=== PATIENT | male | born 1945 | race Caucasian/White ===

== ENCOUNTER 2017-08-24 18:27 | Inpatient (IN) ==
[2017-08-24] MEDS ORDERED: BISACODYL 10 MG SUPPOSITORY RECTALLY PRN (19:39)
[2017-08-24] MEDS ORDERED: ONDANSETRON 4 MG/2 ML INJECTION IVP PRN (19:39)
[2017-08-24 19:51] VITALS: BMI 28.8
[2017-08-24] MEDS: SALINE FLUSH 10ml SYRINGE IV PRN (20:05)
[2017-08-24] MEDS ORDERED: DEXTROSE 50% SYRINGE 50ml (1 AMP) IVP PRN (20:07)
[2017-08-24] MEDS ORDERED: ACETAMINOPHEN 500 MG TABLET PO PRN (20:23)
[2017-08-24] MEDS ORDERED: ALBUTEROL/IPRATROPIUM 2.5mg-0.5mg/3ml NEB IPPB PRN (20:25)
[2017-08-24] MEDS: MEROPENEM 1 GM in NS 100 ML IV SCH (20:28)
[2017-08-24] MEDS: DOCUSATE SODIUM 100 MG CAPSULE PO SCH (20:30)
[2017-08-24] MEDS ORDERED: MORPHINE SULFATE 2 MG/ML AEROSOL PRN (20:32)
--- NOTE | 2017-08-24 20:37 | History & Physical Report ---
History of Present Illness Date: 08/25/17 Chief complaint: SOA, Recurrent PNA HPI: This is a very pleasant 72-year-old male with known small cell lung cancer having undergone his 1st chemotherapy approximately August 08 for 3 days. This was done at [place]. The patient states that his breathing issues all started on the last day of May. 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 He was admitted in [place] for 8 days on antibiotics for pneumonia. 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 He initially felt better. About a month ago he had recurrent shortness of breath and was in [place]. He was sent to [facility] in [place] and was again admitted for pneumonia on antibiotics. He was there for another 8 days. This past Saturday morning he woke up with fevers and chills again. His fever was up to 102. He has been having intermittent yellow thick sputum production ever since May. He has been having chest tightness that 's been ongoing since the [place] admission as well. Of note he does have a history of a stent by Dr. Edwards 6 or 7 years ago. He denies having [place] at that time. He has had intermittent fevers and chills. He denies nausea, vomiting , diarrhea, constipation, hematechezia, melena. He does get lightheaded with position changes like going from sitting to standing. Today he noticed some slight dysuria. Review of Systems All systems PM: 10-point ROS was reviewed, no additional remarkable complaints except Review of systems: Review of systems is as noted in the HPI. All other review of systems is negative. [facility] Patient Stated Medical History Cataracts Yes Congestive Heart Failure Yes Hypertension Yes Chronic Obstructive Pulmonary Yes Disease (COPD) Pneumonia Yes Other Respiratory Yes: stage 4 lung cancer Diabetes Mellitus Type 2 Yes Gastrointestinal Bleeding Yes Ulcer Yes Blood Transfusions Yes Patient denied having COPD/emphysema or asthma to me. He does have a history of small cell lung cancer. He has a history of hypertension, hyperlipidemia, coronary artery disease, carotid artery disease, diabetes, gout, GERD. He denies history thyroid disorder, liver disease or kidney disease. Surgical History: EGD, appendix, colonoscopy, gallbladder, other. Cardiac: cardiac cath, cardiac stent, carotid endarterectomy Family History: Family history is positive for cancer in both mom and dad's side of the family. 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 Medications Home Medications Medication Instructions Recorded Confirmed Type Allopurinol 300 mg PO HS #0 09/21/13 08/24/17 History Enalapril Maleate 10 mg PO DAILY #0 09/21/13 08/24/17 History Furosemide [Lasix] 40 mg PO DAILY #0 09/21/13 08/24/17 History Metformin HCl 500 mg PO BIDWM #0 09/21/13 08/24/17 History Pantoprazole Sodium 40 mg PO DAILY #0 09/21/13 08/24/17 History Potassium Chloride [Klor-Con 10] 10 meq PO DAILY #0 tab 09/21/13 08/24/17 History Saw [place] Xtr/Zinc Picolin [Saw 4 cap PO DAILY #0 09/21/13 08/24/17 History [place] Ext 160 mg Cap] Simvastatin 80 mg PO HS #0 09/21/13 08/24/17 History raNITIdine HCl [Ranitidine HCl] 150 mg PO BID #0 09/21/13 08/24/17 History Clopidogrel Bisulfate [Clopidogrel] 75 mg PO DAILY #0 11/15/14 08/24/17 History Acetaminophen [Acetaminophen Extra 2 tab PO DAILY PRN #0 10/24/16 08/24/17 History Strength] Cyanocobalamin (Vitamin B-12) 1 tab PO DAILY #0 10/24/16 08/24/17 History [Vitamin B-12] Diclofenac 1 applic TOP PRN #0 10/24/16 08/24/17 History Multivitamin [Multi-Day Vitamins] 1 tab PO DAILY #0 10/24/16 08/24/17 History Pyridoxine HCl (Vitamin B-6) 1 tab PO DAILY #0 10/24/16 08/24/17 History Sertraline [Zoloft] 25 mg PO DAILY 10/07/17 10/07/17 History Allergies Allergy/AdvReac Type Severity Reaction Status Date / Time lorazepam Allergy Severe MOOD/HALLUCINATIONS Verified 08/24/17 03:59 AND AGRESSION Exam Vital Signs: Temperature 98.3 F 08/24/17 18:39 Pulse Rate 87 08/24/17 18:39 Respiratory Rate 16 08/24/17 18:39 Blood Pressure 104/63 08/24/17 18:39 Pulse Oximetry 95 08/24/17 18:39 Height/Weight/BMI: Height 1.71 m Weight 84.6 kg Body Mass Index 28.8 Comments: Gen.: alert and oriented, no acute distress, mildly tachypneic skin: warm and dry. Guero cath on anterior chest wall HEENT: NC/AT PERRL, EOMI, Scleral, lids and conjunctiva wnl. MMM. OP clear. Neck: supple, no JVD, carotids 2+ upstroke Lungs: diminished but fairly clear. No rales, rhonchi or wheezes. Heart: regular rate and rhythm. No murmur, rub or gallop abdomen: obese, soft, nontender, nondistended with positive bowel sounds MS: no edema, good distal pulses. Neuro: no focal deficits. Results - Labs CBC & Chem 7: 08/24/17 20:06 08/24/17 20:06 Labs: Pending - ABG Interpretation ABG results: 08/24/17 19:47 ABG pH 7.476 H ABG pCO2 38 ABG pO2 59 L ABG HCO3 28 H ABG Total CO2 29 H ABG O2 Saturation 92.0 L ABG Base Excess 4.0 H Assessment and Plan Assessment and Plan: 08/24/2017 1. Klebsiella bacteremia -Meropenem IV -Likely pulm source -lactic acid and pro-calcitonin pending -white blood count pending 2. Klebsiella pneumonia -Meropenem -resp therapy 3. Diabetes -sliding scale insulin -Accu checks -carb consistent diet -hold metformin 4. Hypertension -currently low normotensive -hold JP inhibitor for the time being -follow closely, volume status 5. Hyperlipidemia -Lipitor 40 mg 6. Coronary artery disease -history of stent 6 or 7 years ago -continue aspirin and Plavix 7. Gout -continue allopurinol 8. Depression -continue Zoloft -Valium PRN 9. Small cell lung cancer -currently undergoing chemotherapy most recently approximately August 08. DVT and G.I. prophylaxis with sub Q heparin and PPI Sepsis Assessment - Evaluation Possible source: pulmonary Confirmed Suspected Infection: Yes Hospital Course Summary Disclaimer: The visit summary below is not to be considered part of the above Progress Note.
[2017-08-24] MEDS ORDERED: ALBUTEROL/IPRATROPIUM 2.5mg-0.5mg/3ml NEB AEROSOL PRN ×2 (20:41→21:09)
[2017-08-24] MEDS ORDERED: BUDESONIDE INH.SOLN 0.5mg/2ml NEB AEROSOL ONE (20:45)
[2017-08-24] MEDS ORDERED: HEPARIN 5,000unit/ml 1ml INJECTION IV SCH (21:00)
[2017-08-24] MEDS ORDERED: ALBUTEROL/IPRATROPIUM 2.5mg-0.5mg/3ml NEB IPPB SCH (21:00)
[2017-08-24] MEDS: ALLOPURINOL 300 MG TABLET PO SCH (22:02)
[2017-08-24] MEDS: ATORVASTATIN 40 MG TABLET PO SCH (22:02)
[2017-08-24] MEDS: GUAIFENESIN LA 600 MG TABLET PO SCH (23:52)
[2017-08-25] MEDS ORDERED: HEPARIN 5,000unit/ml 1ml INJECTION SUB-Q SCH (00:09)
[2017-08-25] MEDS: MEROPENEM 1 GM in NS 100 ML IV SCH ×3 (00:47→16:37)
[2017-08-25] MEDS ORDERED: FALL RISK - PHARMACY CONSULT XX ONE (04:03)
[2017-08-25] MEDS: SALINE FLUSH 10ml SYRINGE IV PRN (04:30)
[2017-08-25] MEDS ORDERED: BUDESONIDE INH.SOLN 0.5mg/2ml NEB AEROSOL SCH (07:00)
[2017-08-25] MEDS: ALBUTEROL/IPRATROPIUM 2.5mg-0.5mg/3ml NEB AEROSOL SCH ×4 (07:23→19:31)
[2017-08-25] MEDS: BUDESONIDE INH.SOLN 0.5mg/2ml NEB AEROSOL SCH ×2 (07:23→19:32)
--- NOTE | 2017-08-25 10:09 | XRay Report ---
INDICATION: hypoxia PROCEDURE: CHEST 2-VIEWS UPRIGHT (PA & LAT) Encounter: Initial COMPARISON: August 24, 2017 at 0003 FINDINGS: Left-sided hydropneumothorax is again seen with decrease in the gas component, now approximately 10%. Continued moderate fluid component with an air-fluid level present. Partial collapse of the left lung versus. Recommend correlation with patient's surgical and procedural history. Right lung remains stable and grossly clear. No midline shift. Mediastinal contours are grossly stable. Impression: Decreasing gas component within the left hydropneumothorax. Results were called to Dr. Coates at 1005 on August 25, 2017. .
--- NOTE | 2017-08-25 10:26 | Progress Note ---
Subjective: This is a very pleasant 72-year-old male with known small cell lung cancer having undergone his 1st chemotherapy approximately August 08 for 3 days. This was done at [place]. The patient states that his breathing issues all started on the last day of May. 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 He was admitted in [place] for 8 days on antibiotics for pneumonia. 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 He initially felt better. About a month ago he had recurrent shortness of breath and was in [place]. He was sent to [facility] in [place] and was again admitted for pneumonia on antibiotics. He was there for another 8 days. This past Saturday morning he woke up with fevers and chills again. His fever was up to 102. He has been having intermittent yellow thick sputum production ever since May. He has been having chest tightness that 's been ongoing since the [place] admission as well. Of note he does have a history of a stent by Dr. Edwards 6 or 7 years ago. He denies having [place] at that time. He has had intermittent fevers and chills. He denies nausea, vomiting , diarrhea, constipation, hematechezia, melena. He does get lightheaded with position changes like going from sitting to standing. Today he noticed some slight dysuria. This morning he reports feeling better. Visiting with company. He thinks he's breathing better. The respiratory therapy is helping quite a bit. He does report his ribs hurt from coughing. He denies chills. He denies any other types of pain besides his ribs hurting. He denies abdominal pain. His bowels have not moved however he is passing gas. Urinating okay. Objective Vital signs: Temperature 97.8 F 08/25/17 07:43 Pulse Rate 86 08/25/17 07:43 Respiratory Rate 20 08/25/17 07:43 Blood Pressure 120/65 08/25/17 07:43 Pulse Oximetry 92 08/25/17 07:43 Height/Weight/BMI: Height 1.71 m Weight 82.6 kg Body Mass Index 28.8 Comments: Gen.: alert and oriented, no acute distress, Breathing non labored. skin: warm and dry. Guero cath on anterior chest wall HEENT: NC/AT PERRL, EOMI, Scleral, lids and conjunctiva wnl. MMM. OP clear. Neck: supple, no JVD, carotids 2+ upstroke, no bruits. L CEA scar Lungs: very diminished but fairly clear. No rales, rhonchi or wheezes. Heart: regular rate and rhythm. No murmur, rub or gallop abdomen: obese, soft, nontender, nondistended with positive bowel sounds MS: no edema, good distal pulses. Neuro: no focal deficits. Results - Labs CBC & Chem 7: 08/24/17 20:06 08/24/17 20:06 Labs: 10% bands, Lactic acid normal, Procalcitonin 0.97. Microbiology Results: Microbiology 08/24/17 20:43 Port/Picc Blood Culture - Preliminary Culture Initiated - Results Pending - ABG Interpretation ABG results: 08/24/17 19:47 ABG pH 7.476 H ABG pCO2 38 ABG pO2 59 L ABG HCO3 28 H ABG Total CO2 29 H ABG O2 Saturation 92.0 L ABG Base Excess 4.0 H Assessment and Plan Assessment and Plan: 08/25/2017 1. Klebsiella bacteremia and pna -Meropenem IV -lactic acid normal. Procalcitonin mildly elevated -leukocytosis with bandemia -afebrile -CXR shows: Left-sided hydropneumothorax is again seen with decrease in the gas component, now approximately 10%. Continued moderate fluid component with an air-fluid level present. Partial collapse of the left lung versus. Recommend correlation with patient's surgical and procedural history. Right lung remains stable and grossly clear. No midline shift. Mediastinal contours are grossly stable. Impression: Decreasing gas component within the left hydropneumothorax. -Dr. Armendariz consulted 2. Klebsiella pneumonia -Meropenem -resp therapy 3. Diabetes -sliding scale insulin -Accu checks -carb consistent diet -hold metformin 4. Hypertension -currently normal but a little low last night (87/40 at [facility]) -hold JP inhibitor for the time being -follow volume status closely. 5. Hyperlipidemia -Lipitor 40 mg 6. Coronary artery disease -history of stent 6 or 7 years ago -continue aspirin and Plavix -No c/o chest pain 7. Gout -continue allopurinol 8. Depression -continue Zoloft -Valium PRN 9. Small cell lung cancer -currently undergoing chemotherapy most recently approximately August 08, plan to repeat Sep 02. DVT and G.I. prophylaxis with sub Q heparin and PPI Hospital Course Summary Disclaimer: The visit summary below is not to be considered part of the above Progress Note.
[2017-08-25] MEDS: HEPARIN SUB-Q 5,000 UNITS/0.5 ML INJECTION SQ SCH ×2 (10:45→16:36)
[2017-08-25] MEDS: ACETAMINOPHEN 325 MG TABLET PO PRN ×2 (10:46→21:10)
[2017-08-25] MEDS: GUAIFENESIN LA 600 MG TABLET PO SCH ×2 (11:36→21:06)
[2017-08-25] MEDS: DOCUSATE SODIUM 100 MG CAPSULE PO SCH ×2 (11:37→21:05)
[2017-08-25] MEDS: CLOPIDOGREL 75 MG TABLET PO SCH (11:38)
[2017-08-25] MEDS: MULTI-VITAMIN + MINERAL TABLET PO SCH (11:38)
[2017-08-25] MEDS: CYANOCOBALAMIN (B-12) 500mcg TABLET PO SCH (11:38)
[2017-08-25] MEDS: PANTOPRAZOLE 40 MG TABLET PO SCH (11:39)
[2017-08-25] MEDS: SERTRALINE 25 MG TABLET PO SCH (11:39)
[2017-08-25] MEDS: INSULIN ASPART 100unit/ml INJECTION SQ PRN ×2 (17:37→21:16)
[2017-08-25] MEDS ORDERED: BUDESONIDE INH.SOLN 0.5mg/2ml NEB AEROSOL ONE (20:45)
[2017-08-25] MEDS: ATORVASTATIN 40 MG TABLET PO SCH (21:06)
[2017-08-25] MEDS: DIAZEPAM 2 MG TABLET PO PRN (21:06)
[2017-08-25] MEDS: ALLOPURINOL 300 MG TABLET PO SCH (21:06)
[2017-08-26] MEDS: MEROPENEM 1 GM in NS 100 ML IV SCH ×3 (00:57→17:12)
[2017-08-26] MEDS: HEPARIN SUB-Q 5,000 UNITS/0.5 ML INJECTION SQ SCH ×3 (00:57→17:11)
[2017-08-26] MEDS: SALINE FLUSH 10ml SYRINGE IV PRN ×6 (00:58→23:13)
[2017-08-26] MEDS: ALBUTEROL/IPRATROPIUM 2.5mg-0.5mg/3ml NEB AEROSOL SCH ×4 (06:48→20:30)
[2017-08-26] MEDS: BUDESONIDE INH.SOLN 0.5mg/2ml NEB AEROSOL SCH ×2 (06:49→20:30)
[2017-08-26] MEDS: DOCUSATE SODIUM 100 MG CAPSULE PO SCH (09:21)
[2017-08-26] MEDS: MULTI-VITAMIN + MINERAL TABLET PO SCH (09:21)
[2017-08-26] MEDS: CYANOCOBALAMIN (B-12) 500mcg TABLET PO SCH (09:21)
[2017-08-26] MEDS: PANTOPRAZOLE 40 MG TABLET PO SCH (09:21)
[2017-08-26] MEDS: SERTRALINE 25 MG TABLET PO SCH (09:21)
[2017-08-26] MEDS: GUAIFENESIN LA 600 MG TABLET PO SCH ×2 (09:21→21:19)
[2017-08-26] MEDS: CLOPIDOGREL 75 MG TABLET PO SCH (09:22)
--- NOTE | 2017-08-26 10:09 | Pulmonology Consult Note ---
<IsabelEmagan D - Last Filed: 08/26/17 09:57> History of Present Illness Consult date: 08/26/17 Requesting physician: Ginger Coates Reason for consult: pneumonia, abnormal CXR/CT Chief complaint: Chest pain, cough, fevers History of present illness: This is a 72 yo male with a Hx of CAD, HTN and recently diagnosed with Small cell lung Ca. He has undergone his 1st set of chemotherapy sessions approximately August 08 and is due for his next set around September 02. 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 He was apparently there for 8 days while on antibiotics. He was discharged and unfortunately went back to work, he feels he never really felt better and still had cough, sputum and SOB. He again had SOB while driving and was seen admitted to [facility] for pneumonia and antibiotics in July. He states at that time he was noted to have a pleural effusion and had 2L removed. He did states that it was positive for malignancy and this led to his stage 4 small cell lung cancer diagnosis and was immediately started on chemotherapy. Unfortunately this past Saturday he woke with fevers and chills again and he states it was 102. He has been having intermittent yellow thick sputum production ever since May. He was again admitted to [facility] for further evaluation. BC on dmit was positive for Klebsiella, WBC was 18.3 and procalcitonin mildly elevated. CXR shows left pleural effusion with AMANDEEP infiltrate/mass. We have been consulted for his pulmonary issues and appreciate the consult. Review of Systems - Constitutional Constitutional: Present: chills, fatigue, fever(s) - EENT Eyes: Present: as per HPI Ears: Present: as per HPI Nose: Present: as per HPI - Cardiovascular Cardiovascular: Present: chest pain - Respiratory Respiratory: Present: cough - Gastrointestinal Gastrointestinal: Present: as per HPI - Genitourinary Genitourinary: Present: as per HPI - Musculoskeletal Musculoskeletal: Present: as per HPI - Integumentary/Breasts Integumentary: Present: as per HPI - Neurological Neurological: Present: as per HPI - Psychiatric Psychiatric: Present: as per HPI - Endocrine Endocrine: Present: as per HPI - Hematologic/Lymphatic Hematologic/Lymphatic: Present: as per HPI - Allergic/Immunologic Allergic/Immunologic: Present: as per HPI PFSH Patient Stated Medical History Cataracts Yes Congestive Heart Failure Yes Hypertension Yes Chronic Obstructive Pulmonary Yes Disease (COPD) Pneumonia Yes Other Respiratory Yes: stage 4 lung cancer Diabetes Mellitus Type 2 Yes Gastrointestinal Bleeding Yes Ulcer Yes Blood Transfusions Yes Surgical History: EGD, appendix, colonoscopy, gallbladder, other. Cardiac: cardiac cath, cardiac stent, carotid endarterectomy - Social History Smoking status: Former smoker Packs per day: 2 Packs-years: 28 Quit date: 11/18/88 Substance use type: does not use Housing: house Current occupational status: employed Current residence: Apartment/Private Home Medications Home Medications Medication Instructions Recorded Confirmed Type Allopurinol 300 mg PO HS #0 09/21/13 08/24/17 History Enalapril Maleate 10 mg PO DAILY #0 09/21/13 08/24/17 History Furosemide [Lasix] 40 mg PO DAILY #0 09/21/13 08/24/17 History Metformin HCl 500 mg PO BIDWM #0 09/21/13 08/24/17 History Pantoprazole Sodium 40 mg PO DAILY #0 09/21/13 08/24/17 History Potassium Chloride [Klor-Con 10] 10 meq PO DAILY #0 tab 09/21/13 08/24/17 History Saw [place] Xtr/Zinc Picolin [Saw 4 cap PO DAILY #0 09/21/13 08/24/17 History [place] Ext 160 mg Cap] Simvastatin 80 mg PO HS #0 09/21/13 08/24/17 History raNITIdine HCl [Ranitidine HCl] 150 mg PO BID #0 09/21/13 08/24/17 History Clopidogrel Bisulfate [Clopidogrel] 75 mg PO DAILY #0 11/15/14 08/24/17 History Acetaminophen [Acetaminophen Extra 2 tab PO DAILY PRN #0 10/24/16 08/24/17 History Strength] Cyanocobalamin (Vitamin B-12) 1 tab PO DAILY #0 10/24/16 08/24/17 History [Vitamin B-12] Diclofenac 1 applic TOP PRN #0 10/24/16 08/24/17 History Multivitamin [Multi-Day Vitamins] 1 tab PO DAILY #0 10/24/16 08/24/17 History Pyridoxine HCl (Vitamin B-6) 1 tab PO DAILY #0 10/24/16 08/24/17 History Sertraline [Zoloft] 25 mg PO DAILY 08/24/17 08/24/17 History Allergies Allergy/AdvReac Type Severity Reaction Status Date / Time lorazepam Allergy Severe MOOD/HALLUCINATIONS Verified 08/24/17 03:59 AND AGRESSION Exam Vital signs: Temperature 97.6 F 08/26/17 07:54 Pulse Rate 88 08/26/17 07:54 Respiratory Rate 22 08/26/17 07:54 Blood Pressure 133/76 08/26/17 07:54 Pulse Oximetry 94 08/26/17 07:54 - Constitutional no acute distress, well nourished - Routine HEENT Exam Head: Present: normocephalic, atraumatic Eye: Present: EOMI, PERRL - Routine Neck Exam Present: supple, full ROM - Routine Respiratory Exam Present: decreased breath sounds Comments: LLL decreased breath sounds - Routine Cardiovascular Exam Present: RRR, no murmur - Routine Abdominal Exam Present: soft, normoactive bowel sounds - Routine Extremities Exam Present: no edema, non tender, full ROM - Routine Back/Spine/Pelvis Exam Back/Spine: Present: full ROM - Routine Skin Exam Present: intact, dry - Routine Neurological Exam Present: alert, oriented X3, CN II-XII intact - Routine Psychiatric Exam Present: normal affect, normal thought process Results - Laboratory Findings CBC and BMP: 08/26/17 05:09 08/26/17 05:09 ABG ABG pH 7.476 (7.350-7.450) H 08/24/17 19:47 ABG pCO2 38 MMHG (34-45) 08/24/17 19:47 ABG pO2 59 MMHG (80-100) L 08/24/17 19:47 ABG O2 Saturation 92.0 % (95.0-98.0) L 08/24/17 19:47 Abnormal lab findings: Abnormal Labs 08/24/17 08/24/17 08/24/17 19:18 19:47 20:06 WBC 18.3 H D RBC 3.07 L Hgb 10.6 L Hct 30.4 L MCH 34.5 H Plt Count 58 L Neutrophils % (Manual) 80.0 H Band Neutrophils % 10.0 H Lymphocytes % (Manual) 3.0 L Neutrophils # (Manual) 14.6 H Lymphocytes # (Manual) 0.5 L Monocytes # (Manual) 1.3 H ABG pH 7.476 H ABG pO2 59 L ABG HCO3 28 H ABG Total CO2 29 H ABG O2 Saturation 92.0 L ABG Base Excess 4.0 H Sodium Chloride Carbon Dioxide Creatinine Glucose Albumin Albumin/Globulin Ratio Ur Specific [place] <=1.005 L 08/24/17 08/26/17 08/26/17 20:06 05:09 05:09 WBC 11.5 H RBC 2.81 L Hgb 9.6 L Hct 27.7 L MCH 34.2 H Plt Count 71 L Neutrophils % (Manual) 72.0 H Band Neutrophils % Lymphocytes % (Manual) 16.0 L Neutrophils # (Manual) 8.3 H Lymphocytes # (Manual) Monocytes # (Manual) ABG pH ABG pO2 ABG HCO3 ABG Total CO2 ABG O2 Saturation ABG Base Excess Sodium 133 L Chloride 95 L Carbon Dioxide 32 H Creatinine 0.7 L 0.5 L D Glucose 162 H 116 H Albumin 3.2 L Albumin/Globulin Ratio 0.9 L Ur Specific [place] - Diagnostic Findings Chest x-ray: image reviewed (as noted in HPI) Assessment and Plan - Assessment and Plan (1) Chronic respiratory failure with hypoxia Current visit: Yes Status: Acute (2) Bacteremia due to Klebsiella pneumoniae Current visit: Yes Status: Acute (3) Small cell lung cancer Current visit: Yes Status: Acute (4) Malignant pleural effusion Current visit: Yes Status: Acute - Assessment and Plan Pt currently on O2 at 4L per NC, tolerating and home O2. Positive for Klebsiella bacteremia, WBC 18>11 on merrem per primary, repeat BC NTD. SCLCa, likely pna, check sputum, on pulmicort BID and a/a q4hr, no wheezing noted. CXR noted LLL pleural effusion, previous know malignant effusion, no SOB noted at this time, likely recurrent malignant fluid but pt refusing thoracentesis at this time. If increased and SOB noted, could place a pleurx catheter instead if pt willing, unfortunately states his last thoracentesis was painful and is the reason he is refusing, states he would rather be on hospice. Will continue to follow, cont acapella and IS along [facility] ambulation for expansion therapies. <Magdy Armendariz - Last Filed: 08/27/17 16:27> PFSH Patient Stated Medical History Cataracts Yes Congestive Heart Failure Yes Hypertension Yes Chronic Obstructive Pulmonary Yes Disease (COPD) Pneumonia Yes Other Respiratory Yes: stage 4 lung cancer Diabetes Mellitus Type 2 Yes Gastrointestinal Bleeding Yes Ulcer Yes Blood Transfusions Yes Exam Vital signs: Temperature 97.8 F 08/27/17 14:47 Pulse Rate 80 08/27/17 14:47 Respiratory Rate 22 08/27/17 15:17 Blood Pressure 100/65 08/27/17 14:47 Pulse Oximetry 97 08/27/17 15:17 Results - Laboratory Findings CBC and BMP: 08/27/17 03:54 08/27/17 03:54 ABG ABG pH 7.476 (7.350-7.450) H 08/24/17 19:47 ABG pCO2 38 MMHG (34-45) 08/24/17 19:47 ABG pO2 59 MMHG (80-100) L 08/24/17 19:47 ABG O2 Saturation 92.0 % (95.0-98.0) L 08/24/17 19:47 PT/INR, D-dimer INR 1.10 (0.99-1.21) 08/26/17 14:19 Abnormal lab findings: Abnormal Labs 08/24/17 08/24/17 08/24/17 19:18 19:47 20:06 WBC 18.3 H D RBC 3.07 L Hgb 10.6 L Hct 30.4 L MCH 34.5 H Plt Count 58 L Neutrophils % (Manual) 80.0 H Band Neutrophils % 10.0 H Lymphocytes % (Manual) 3.0 L Neutrophils # (Manual) 14.6 H Lymphocytes # (Manual) 0.5 L Monocytes # (Manual) 1.3 H ABG pH 7.476 H ABG pO2 59 L ABG HCO3 28 H ABG Total CO2 29 H ABG O2 Saturation 92.0 L ABG Base Excess 4.0 H Sodium Chloride Carbon Dioxide Creatinine Glucose Albumin Albumin/Globulin Ratio Ur Specific [place] <=1.005 L 08/24/17 08/26/17 08/26/17 20:06 05:09 05:09 WBC 11.5 H RBC 2.81 L Hgb 9.6 L Hct 27.7 L MCH 34.2 H Plt Count 71 L Neutrophils % (Manual) 72.0 H Band Neutrophils % Lymphocytes % (Manual) 16.0 L Neutrophils # (Manual) 8.3 H Lymphocytes # (Manual) Monocytes # (Manual) ABG pH ABG pO2 ABG HCO3 ABG Total CO2 ABG O2 Saturation ABG Base Excess Sodium 133 L Chloride 95 L Carbon Dioxide 32 H Creatinine 0.7 L 0.5 L D Glucose 162 H 116 H Albumin 3.2 L Albumin/Globulin Ratio 0.9 L Ur Specific [place] 08/27/17 08/27/17 03:54 03:54 WBC RBC 2.81 L Hgb 9.5 L Hct 27.7 L MCH Plt Count 104 L D Neutrophils % (Manual) 70.0 H Band Neutrophils % Lymphocytes % (Manual) 22.0 L Neutrophils # (Manual) Lymphocytes # (Manual) Monocytes # (Manual) ABG pH ABG pO2 ABG HCO3 ABG Total CO2 ABG O2 Saturation ABG Base Excess Sodium Chloride Carbon Dioxide 31 H Creatinine 0.6 L Glucose 111 H Albumin 2.9 L Albumin/Globulin Ratio Ur Specific [place] Assessment and Plan - Assessment and Plan (1) Bacteremia due to Klebsiella pneumoniae Current visit: Yes Status: Acute (2) Small cell lung cancer Current visit: Yes Status: Acute CXR shows volume loss left lung base with hydropneumothorax but no clear evidence for enlarging pleural effusion. I don't feel that pleural drainage would be a big help to him at this time. Continue empiric therapy for pneumonia. Continue O2 to keep sat>90%. We will continue to follow (3) Malignant pleural effusion Current visit: Yes Status: Acute (4) Chronic respiratory failure with hypoxia Current visit: Yes Status: Acute (5) Pneumonia Current visit: Yes Status: Acute
--- NOTE | 2017-08-26 11:34 | XRay Report ---
Indication: pleural effusion Procedure: XR chest 1V: Encounter: Subsequent Comparison: 08/24/2017 Technique: A single portable AP chest radiograph was obtained. Findings: Life support devices: Unchanged left subclavian Port-A-Cath. Lungs and airways: Persistent low left lung volume and heterogeneous left airspace consolidation. Normal pulmonary vasculature. Pleura: Allowing for differences in technique and positioning, grossly unchanged left hydropneumothorax with 3.8 cm of apical pleural separation. Heart and mediastinum: The cardiomediastinal silhouette and great vessels appear unchanged. Osseous structures and soft tissues: No acute osseous abnormality is seen. Impression: Unchanged left hydropneumothorax and heterogeneous left pulmonary airspace consolidation. .
--- NOTE | 2017-08-26 12:53 | Consult Note ---
Oncology HPI - Data of Consult Patient: known to practice within the last 3 years <Silvana Carolina - 08/26/17 12:53> Consult date: 08/26/17 <Silvana Carolina - 08/26/17 12:53> Requesting Physician: Angela Mercado MD <Lukas Brasher - 08/26/17 18:59> Angela Mercado MD <Silvana Carolina - 08/26/17 12:53> Primary Care Provider: Refugio Alcantara <Lukas Brasher - 08/26/17 18:59> Refugio Alcantara <Silvana Carolina - 08/26/17 12:53> Family Provider: Refugio Alcantara <Lukas Brasher - 08/26/17 18:59> Refugio Alcantara <Silvana Carolina - 08/26/17 12:53> - Consult Narrative Reason for consult: small cell lung cancer <Slivana Carolina - 08/26/17 12:53> History of present illness: Blood culture was positive for Klebsiella pneumoniae. Currently on antibiotics with meropenem <Lukas Brasher - 08/26/17 18:59> Presented to [facility] emergency department with persistent fever, increased shortness of breath. Chest x-ray showed significant left lower lobe consolidation, but was clearer from prior films. Initially was going to be dismissed with oral antibiotics, but preliminary blood culture indicated possible sepsis. Was admitted for IV antibiotics and continued supportive care. This is a 72-year-old male patient, known to Dr. Pennington since 2012 when treated for stage IIIB colon cancer with hemicolectomy followed by 6 months of FOLFOX adjuvant chemotherapy. He has been disease-free without recurrence. Comorbidities include hypertension and diabetes mellitus. The patient quit smoking more than 20 years ago. He was treated for pneumonia in May in [place]. Chest x-ray at that time showed left lower lobe infiltrate. He presented with shortness of breath. Chest x-ray and CT scan showed complete white out of the left lung due to pleural effusion and left mainstem obstructive atelectasis. Bronchoscopy showed no evidence of endobronchial lesion. He also underwent thoracocentesis with removal of 2 L of fluid. An endobronchial biopsy as well as pleural fluid showed small cell carcinoma. Staging workup with MRI of the brain, bone scan and CT scan of the abdomen showed no evidence of metastasis. The patient was staged as stage IV lung cancer/small cell carcinoma with malignant pleural effusion. He was started on chemotherapy carboplatin AUC of 6 and etoposide 100 mg/m X3 on 08/08/2017 without complications. He was discharged home on oxygen. He received Neulasta on day 5 of chemotherapy <Silvana Carolina 08/26/17 17:46> Review of Systems - Constitutional Constitutional: Present: anorexia, chills (prior to admit), fever(s) (prior to admit. Denies fever since admission.) <Silvana Carolina 08/26/17 17:46> - EENT Eyes: Absent: diplopia <Silvana Carolina 08/26/17 17:46> Mouth/Throat: Absent: sore throat <Silvana Carolina 08/26/17 17:46> - Cardiovascular Cardiovascular: Present: dyspnea on exertion. Absent: chest pain <Silvana Carolina 08/26/17 17:46> - Respiratory Respiratory: Present: cough, hemoptysis <Silvana Carolina 08/26/17 17:46> - Gastrointestinal Gastrointestinal: Absent: constipation, diarrhea <Silvana Carolina 08/26/17 17 :46> - Genitourinary Genitourinary: Absent: hematuria <Silvana Carolina 08/26/17 17:46> - Musculoskeletal Musculoskeletal: Absent: back pain <Silvana Carolina 08/26/17 17:46> - Integumentary/Breasts Integumentary: Absent: rash, swelling <Silvana Carolina 08/26/17 17:47> - Neurological Neurological: Absent: numbness <Silvana Carolina 08/26/17 17:46> - Psychiatric Psychiatric: Present: depression <Silvana Carolina 08/26/17 17:46> Additional comments: Long history of depression. Recent loss of spouse in May 2017. <Silvana Carolina 08/26/17 17:46> [facility] Patient Stated Medical History Cataracts Yes Congestive Heart Failure Yes Hypertension Yes Chronic Obstructive Pulmonary Yes Disease (COPD) Pneumonia Yes Other Respiratory Yes: stage 4 lung cancer Diabetes Mellitus Type 2 Yes Gastrointestinal Bleeding Yes Ulcer Yes Blood Transfusions Yes <Lukas Brasher/09/17 18:59> Patient Stated Medical History Cataracts Yes Congestive Heart Failure Yes Hypertension Yes Chronic Obstructive Pulmonary Yes Disease (COPD) Pneumonia Yes Other Respiratory Yes: stage 4 lung cancer Diabetes Mellitus Type 2 Yes Gastrointestinal Bleeding Yes Ulcer Yes Blood Transfusions Yes <Silvana Carolina - 08/26/17 17:46> Medical History Updates: Colon cancer stage IIIB 2013 status post 6 cycles FOLFOX <Lukas Brasher - 08/26/17 18:59> Surgical History: EGD, appendix, colonoscopy, gallbladder, other. Cardiac: cardiac cath, cardiac stent, carotid endarterectomy <Silvana Carolina - 12:53> - Social History Smoking status: Former smoker <Silvana Carolina - 08/26/17 12:53> Current residence: Apartment/Private Home <Silvana Carolina - 08/26/17 12:53> Social history: with passing away in May <Lukas Brasher - 08/26/17 18:59> Medications Home Medications Medication Instructions Recorded Confirmed Type Allopurinol 300 mg PO HS #0 09/21/13 08/24/17 History Enalapril Maleate 10 mg PO DAILY #0 09/21/13 08/24/17 History Furosemide [Lasix] 40 mg PO DAILY #0 09/21/13 08/24/17 History Metformin HCl 500 mg PO BIDWM #0 09/21/13 08/24/17 History Pantoprazole Sodium 40 mg PO DAILY #0 09/21/13 08/24/17 History Potassium Chloride [Klor-Con 10] 10 meq PO DAILY #0 tab 09/21/13 08/24/17 History Saw [place] Xtr/Zinc Picolin [Saw 4 cap PO DAILY #0 09/21/13 08/24/17 History [place] Ext 160 mg Cap] Simvastatin 80 mg PO HS #0 09/21/13 08/24/17 History raNITIdine HCl [Ranitidine HCl] 150 mg PO BID #0 09/21/13 08/24/17 History Clopidogrel Bisulfate [Clopidogrel] 75 mg PO DAILY #0 11/15/14 08/24/17 History Acetaminophen [Acetaminophen Extra 2 tab PO DAILY PRN #0 10/24/16 08/24/17 History Strength] Cyanocobalamin (Vitamin B-12) 1 tab PO DAILY #0 10/24/16 08/24/17 History [Vitamin B-12] Diclofenac 1 applic TOP PRN #0 10/24/16 08/24/17 History Multivitamin [Multi-Day Vitamins] 1 tab PO DAILY #0 10/24/16 08/24/17 History Pyridoxine HCl (Vitamin B-6) 1 tab PO DAILY #0 10/24/16 08/24/17 History Sertraline [Zoloft] 25 mg PO DAILY 08/24/17 08/24/17 History <Lukas Brasher - 08/26/17 18:59> Allergies Allergy/AdvReac Type Severity Reaction Status Date / Time lorazepam Allergy Severe MOOD/HALLUCINATIONS Verified 08/24/17 03:59 AND AGRESSION <Lukas Brasher - 08/26/17 18:59> Exam Vital signs: Temperature 98 F 08/26/17 15:45 Pulse Rate 78 08/26/17 16:00 Respiratory Rate 22 08/26/17 16:01 Blood Pressure 142/77 H 08/26/17 15:45 Pulse Oximetry 96 08/26/17 16:01 <Lukas Brasher - 08/26/17 18:59> Temperature 97.6 F 08/26/17 07:54 Pulse Rate 88 08/26/17 07:54 Respiratory Rate 24 08/26/17 11:16 Blood Pressure 133/76 08/26/17 07:54 Pulse Oximetry 96 08/26/17 11:16 <Silvana Carolina - 08/26/17 12:53> - Constitutional no acute distress, well developed <Silvana Carolina - 08/26/17 17:46> - Routine HEENT Exam Head: Present: normocephalic <Silvana Carolina - 08/26/17 17:46> Eye: Present: PERRL <Lukas Brasher - 08/26/17 18:59> Present: EOMI <Silvana Carolina - 08/26/17 17:46> ENT: Present: mucous membranes moist <Silvana Carolina - 08/26/17 17:46> - Routine Neck Exam Absent: lymphadenopathy <Lukas Brasher - 08/26/17 18:59> Present: supple. Absent: tenderness <CaitySilvana Villa - 17:46> - Routine Respiratory Exam Present: decreased breath sounds (left greater than right.). Absent: wheezes <CaitySilvana - 08/26/17 17:46> Comments: Dullness to percussion entire left lung <Lukas Brasher - 08/26/17 18:59> - Routine Cardiovascular Exam Present: RRR. Absent: no murmur <Silvana Carolina - 08/26/17 17:46> - Routine Abdominal Exam Present: soft, non tender. Absent: mass <Silvana Carolina - 08/26/17 17:46> - Routine Extremities Exam Present: full ROM. Absent: no edema <Silvana Carolina - 08/26/17 17:46> - Routine Back/Spine/Pelvis Exam Back/Spine: Absent: vertebral tenderness <Silvana Carolina - 08/26/17 17:46> - Routine Skin Exam Present: warm <Lukas Brasher - 08/26/17 18:59> Present: intact, dry <Silvana Carolina - 08/26/17 17:46> - Routine Neurological Exam Present: CN II-XII intact <Lukas Brasher - 08/26/17 18:59> Present: alert, oriented X3 <Silvana Carolina - 08/26/17 17:46> - Routine Psychiatric Exam Present: normal affect, normal thought process <Silvana Carolina - 08/26/17 17: 46> Oncology Results - Labs CBC & Chem 7: 08/26/17 05:09 08/26/17 05:09 <Lukas Brasher - 08/26/17 18:59> Labs: Short CBC 08/26/17 Range/Units 05:09 WBC 11.5 H (4.5-11.0) T/MM3 Hgb 9.6 L (13.5-17.5) GM/DL Hct 27.7 L (41-53) % Plt Count 71 L (130-400) T/MM3 BMP 08/26/17 05:09 Sodium 139 D Potassium 3.8 Chloride 100 Carbon Dioxide 32 H BUN 11.0 Creatinine 0.5 L D Glucose 116 H Calcium 8.9 <Lukas Brasher - 08/26/17 18:59> Short CBC 08/26/17 Range/Units 05:09 WBC 11.5 H (4.5-11.0) T/MM3 Hgb 9.6 L (13.5-17.5) GM/DL Hct 27.7 L (41-53) % Plt Count 71 L (130-400) T/MM3 BMP 08/26/17 05:09 Sodium 139 D Potassium 3.8 Chloride 100 Carbon Dioxide 32 H BUN 11.0 Creatinine 0.5 L D Glucose 116 H Calcium 8.9 <Silvana Carolina L - 08/26/17 12:53> - Impressions Impression: Unchanged left hydropneumothorax and heterogeneous left pulmonary airspace consolidation. <Silvana Carolina L - 08/26/17 12:59> Assessment and Plan Assessment and Plan: WBC 11.5 with hemoglobin of 9.6 and platelets of 71K. On 08/24, WBC 18.3 with hemoglobin of 10.6 and platelets of 58,000. Patient with extensive stage small cell lung cancer status post only 1 cycle of chemotherapy admitted with septicemia with Klebsiella pneumoniae probably secondary to pneumonia, left main stem bronchus obstruction with atelectasis and left pleural effusion. Patient is struggling with the oxygen and the limitations the E cylinder provide with him. He might benefit from a battery powered concentrator. He recently lost his and is trying to decide if he wants to continue to fight. Quality is more important to him than quantity. I am encouraged him to consider one more cycle of chemotherapy but he will be seen by Dr. Pennington, his primary oncologist, tomorrow. I participated in the development of the plan of care of this patient, examined patient and provided documentation of this consultation. Agree with plan of care that was co-developed with Genie Carolina. <Lukas Brasher D - 08/26/17 18:59> 1. Extensive small cell lung cancer with malignant left pleural effusion. Cycle 1 carboplatin/etoposide given 08/08/17 as inpatient. Received Neulasta. 2. Klebsiella bacteremia/pneumonia, seen by pulmonology. 3. Anemia/pancytopenia. Now with hemoptysis. 4. History of stage IIIB colon cancer 2012. Plan Continue supportive care. Will follow counts closely. Has been seen by pulmmonology; refusing thoracentesis. States last one was very painful. May get benefit from Pleurx catheter, but again does not feel patient would agree to going through the procedure. Patient is [id number], states if symptoms persist, or chemotherapy becomes difficult, " I will plan to have hospice." Informed Dr. Brasher will see patient this afternoon. At this time he has no questions. <Silvana Carolina - 08/26/17 17:48>
[2017-08-26] MEDS: INSULIN ASPART 100unit/ml INJECTION SQ PRN ×2 (17:57→21:28)
[2017-08-26] MEDS ORDERED: METOCLOPRAMIDE 10mg/2ml INJECTION IVP PRN (19:37)
--- NOTE | 2017-08-26 19:43 | Progress Note ---
Subjective: The patient was seen this evening in his room. He complains of pain in his ribs that is mild and chronic and then complains of pain in his chest that is worse when he has a cough. He is requesting some oral pain medication. He also states that he has had hemoptysis that was just a little pink initially, but since admission to the hospital it is now red and larger amounts. This could be related to heparin subcutaneous for DVT prophylaxis. He has chronic shortness of breath which is unchanged. He has constipation and states he ate corn this evening and he hopes this will help. He is agreeable to trying MiraLAX as well. He denies any nausea or vomiting. He states he's eating and drinking well. He has no difficulties with urination. Objective Vital signs: Temperature 98 F 08/26/17 15:45 Pulse Rate 78 08/26/17 16:00 Respiratory Rate 22 08/26/17 16:01 Blood Pressure 142/77 H 08/26/17 15:45 Pulse Oximetry 96 08/26/17 16:01 Height/Weight/BMI: Height 1.71 m Weight 82.2 kg Body Mass Index 28.8 Comments: GEN-alert, oriented, no acute distress HEENT-oropharynx is moist NECK-supple CV-regular rate and rhythm CHEST-minimal breath sounds appreciated on the left, normal breath sounds on the right ABD-soft, nontender with positive bowel sounds -no [place] EXT-SCDs are on. No edema NEURO-no focal deficits SKIN-warm and dry and without rashes Results - Labs CBC & Chem 7: 08/26/17 05:09 08/26/17 05:09 Labs: Calcium and magnesium are normal. Microbiology Results: Microbiology 08/24/17 20:43 Port/Picc Blood Culture - Preliminary No Growth After 1 Day Blood cultures done prior to admission, one of 2 positive for Klebsiella pneumoniae which are sensitive to all antibiotics tested except for ampicillin. - ABG Interpretation ABG results: 08/24/17 19:47 ABG pH 7.476 H ABG pCO2 38 ABG pO2 59 L ABG HCO3 28 H ABG Total CO2 29 H ABG O2 Saturation 92.0 L ABG Base Excess 4.0 H Assessment and Plan Assessment and Plan: 08/26/2017 Impression Klebsiella pneumoniae pneumonia and bacteremia. Sensitive to all antibiotics except for ampicillin. On day 3 of meropenem. Repeat blood culture 1 on 2016 is negative Left-sided hydropneumothorax-patient does not want thoracentesis due to the pain of previous thoracentesis. Stage IV small cell lung cancer, chemotherapy recently and late July with plans to repeat September 02 Chronic hypoxic respiratory failure-stable on 4 L Type 2 diabetes mellitus-metformin on hold, blood sugars fair control on current sliding scale insulin Hypertension well controlled Coronary artery disease with history of stent 6 or 7 years ago-on aspirin and Plavix Gout-doing well on allopurinol Depression-continue Zoloft, has Valium when necessary Chest pain-likely related to lung metastasis Hemoptysis-worsened after starting heparin subcutaneous Anemia-hemoglobin dropped from 11.6-9.6 Plan Start Percocet as needed for pain. IV morphine is available for breakthrough pain. Discontinue meropenem and start Levaquin 750 mg IV daily. Add MiraLAX for constipation DC subcutaneous heparin secondary to worsening hemoptysis The patient had mentioned to staff earlier today that he wanted to consider going on hospice. When I talked with him he stated he would like to get his pain under control and would like to proceed with his next round of chemotherapy and see how he does. If not doing well, he wants to consider hospice at that time. Recheck CBC and renal panel tomorrow. Discussed with Dr. Brasher Pulmonology note reviewed. Consults appreciated. Hospital Course Summary Disclaimer: The visit summary below is not to be considered part of the above Progress Note. Hospital Course: 08/25/2017 1. Klebsiella bacteremia and pna -Meropenem IV -lactic acid normal. Procalcitonin mildly elevated -leukocytosis with bandemia -afebrile -CXR shows: Left-sided hydropneumothorax is again seen with decrease in the gas component, now approximately 10%. Continued moderate fluid component with an air-fluid level present. Partial collapse of the left lung versus. Recommend correlation with patient's surgical and procedural history. Right lung remains stable and grossly clear. No midline shift. Mediastinal contours are grossly stable. Impression: Decreasing gas component within the left hydropneumothorax. -Dr. Armendariz consulted 2. Klebsiella pneumonia -Meropenem -resp therapy 3. Diabetes -sliding scale insulin -Accu checks -carb consistent diet -hold metformin 4. Hypertension -currently normal but a little low last night (87/40 at ) -hold JP inhibitor for the time being -follow volume status closely. 5. Hyperlipidemia -Lipitor 40 mg 6. Coronary artery disease -history of stent 6 or 7 years ago -continue aspirin and Plavix -No c/o chest pain 7. Gout -continue allopurinol 8. Depression -continue Zoloft -Valium PRN 9. Small cell lung cancer -currently undergoing chemotherapy most recently approximately August 08, plan to repeat Sep 02. DVT and G.I. prophylaxis with sub Q heparin and PPI 08/26/17 19:44
[2017-08-26] MEDS ORDERED: POLYETHYL. GLYCOL 3350 BOTTLE 238 GM PO SCH (19:45)
[2017-08-26] MEDS: Oxycodone/Acetaminophen 5/325 1 TAB PO PRN (20:05)
[2017-08-26] MEDS ORDERED: POLYETHYL GLYCOL 3350 17gm PACKET PO PRN (21:01)
[2017-08-26] MEDS: LEVOFLOXACIN PB 750 MG/150 ML BAG IV SCH (21:18)
[2017-08-26] MEDS: ALLOPURINOL 300 MG TABLET PO SCH (21:19)
[2017-08-26] MEDS: ATORVASTATIN 40 MG TABLET PO SCH (21:19)
[2017-08-26] MEDS: DIAZEPAM 2 MG TABLET PO PRN (21:41)
[2017-08-27] MEDS: SALINE FLUSH 10ml SYRINGE IV PRN (04:10)
[2017-08-27] MEDS: BUDESONIDE INH.SOLN 0.5mg/2ml NEB AEROSOL SCH ×2 (07:03→19:10)
[2017-08-27] MEDS: ALBUTEROL/IPRATROPIUM 2.5mg-0.5mg/3ml NEB AEROSOL SCH ×4 (07:03→19:10)
[2017-08-27] MEDS: CLOPIDOGREL 75 MG TABLET PO SCH (08:19)
[2017-08-27] MEDS: MULTI-VITAMIN + MINERAL TABLET PO SCH (08:19)
[2017-08-27] MEDS: GUAIFENESIN LA 600 MG TABLET PO SCH ×2 (08:19→20:34)
[2017-08-27] MEDS: SERTRALINE 25 MG TABLET PO SCH (08:19)
[2017-08-27] MEDS: PANTOPRAZOLE 40 MG TABLET PO SCH (08:19)
[2017-08-27] MEDS: Oxycodone/Acetaminophen 5/325 1 TAB PO PRN ×2 (08:19→19:44)
[2017-08-27] MEDS: CYANOCOBALAMIN (B-12) 500mcg TABLET PO SCH (08:19)
[2017-08-27] MEDS: INSULIN ASPART 100unit/ml INJECTION SQ PRN ×3 (12:00→22:06)
--- NOTE | 2017-08-27 16:51 | Progress Note ---
Oncology Subjective Reclining in hospital bed, alone in room. Reports persistent cough, somewhat lessened. No overt hemoptysis. States eating and drinking. Voiding normally. General: No fever, no night sweats Eyes: No redness, no pain, no diplopia ENT: No mouth sores, no trouble swallowing Cardiac: No chest pain no palpitations Pulmonary: No cough, no shortness of breath, no wheezing Abdomen: No pain, no nausea vomiting, no diarrhea or constipation : No urgency, frequency, dysuria, or hematuria Musculoskeletal: No arthritis, no myalgias Neurological: No headaches, no focal weakness Skin: No rash, no sores Psychiatric: No anxiety, no depression Exam Vital signs: Temperature 97.8 F 08/27/17 14:47 Pulse Rate 80 08/27/17 14:47 Respiratory Rate 22 08/27/17 15:17 Blood Pressure 100/65 08/27/17 14:47 Pulse Oximetry 97 08/27/17 15:17 - Constitutional no acute distress, well nourished, well developed - Routine HEENT Exam Head: Present: normocephalic Eye: Present: EOMI ENT: Present: mucous membranes moist - Routine Neck Exam Present: supple. Absent: lymphadenopathy, tenderness - Routine Respiratory Exam Present: diminished air movement (left middle and lower lobes). Absent: wheezes , crackles - Routine Cardiovascular Exam Present: RRR. Absent: no murmur - Routine Abdominal Exam Present: soft, normoactive bowel sounds. Absent: tenderness - Routine Extremities Exam Present: full ROM. Absent: no edema - Routine Skin Exam Present: intact, dry. Absent: rash Oncology Results - Labs CBC & Chem 7: 08/29/17 04:42 08/29/17 04:42 Labs: Short CBC 08/27/17 Range/Units 03:54 WBC 8.5 (4.5-11.0) T/MM3 Hgb 9.5 L (13.5-17.5) GM/DL Hct 27.7 L (41-53) % Plt Count 104 L D (130-400) T/MM3 BMP 08/27/17 03:54 Sodium 139 Potassium 4.1 Chloride 101 Carbon Dioxide 31 H BUN 11.0 Creatinine 0.6 L Glucose 111 H Calcium 8.7 Liver Function 08/27/17 Range/Units 03:54 Albumin 2.9 L (3.5-5.0) G/DL Assessment and Plan Assessment and Plan: WBC 11.5 with hemoglobin of 9.6 and platelets of 71K. On 08/24, WBC 18.3 with hemoglobin of 10.6 and platelets of 58,000. Patient with extensive stage small cell lung cancer status post only 1 cycle of chemotherapy admitted with septicemia with Klebsiella pneumoniae probably secondary to pneumonia, left main stem bronchus obstruction with atelectasis and left pleural effusion. Patient is struggling with the oxygen and the limitations the E cylinder provide with him. He might benefit from a battery powered concentrator. He recently lost his and is trying to decide if he wants to continue to fight. Quality is more important to him than quantity. I am encouraged him to consider one more cycle of chemotherapy but he will be seen by Dr. Pennington, his primary oncologist, tomorrow. I participated in the development of the plan of care of this patient, examined patient and provided documentation of this consultation. Agree with plan of care that was co-developed with Genie Carolina. - Time Spent With Patient Total time spent is greater than 50% in coordination of care (as documented) at patient's floor/unit and/or counseling patient: less than 15 minutes
[2017-08-27] MEDS: LEVOFLOXACIN PB 750 MG/150 ML BAG IV SCH (20:33)
[2017-08-27] MEDS: SIMVASTATIN 40 MG TABLET PO SCH (20:34)
[2017-08-27] MEDS: ALLOPURINOL 300 MG TABLET PO SCH (20:34)
[2017-08-27] MEDS: ATORVASTATIN 40 MG TABLET PO SCH (20:34)
[2017-08-27] MEDS: DIAZEPAM 2 MG TABLET PO PRN (20:45)
--- NOTE | 2017-08-27 22:29 | Progress Note ---
Subjective: The patient was seen earlier today. He states his chest pain when he coughs is much better after starting Percocet. He states, so far one twice a day seems to be working well. He had a large hard bowel movement today. He is eating and drinking well. He denies any shortness of breath. He continues to have a cough. Objective Vital signs: Temperature 97.8 F 08/27/17 14:47 Pulse Rate 87 08/27/17 16:00 Respiratory Rate 24 08/27/17 19:10 Blood Pressure 100/65 08/27/17 14:47 Pulse Oximetry 99 08/27/17 19:10 Height/Weight/BMI: Height 1.71 m Weight 82.5 kg Body Mass Index 28.8 Comments: GEN-alert, oriented, no acute distress HEENT-sclera anicteric, oropharynx moist NECK-supple CV-regular rate and rhythm CHEST-minimal breath sounds heard on the left, good breath sounds heard on the right ABD-soft, nontender with positive bowel sounds -no [place] EXT-no edema NEURO-no focal deficits SKIN-warm and dry and without rashes Results - Labs CBC & Chem 7: 08/27/17 03:54 08/27/17 03:54 Microbiology Results: Microbiology 08/24/17 20:43 Port/Picc Blood Culture - Preliminary No Growth After 3 Days 08/26/17 20:57 Sputum, Expectorated Gram Stain - Final 08/26/17 20:57 Sputum, Expectorated Sputum Culture - Preliminary Early growth - ABG Interpretation ABG results: 08/24/17 19:47 ABG pH 7.476 H ABG pCO2 38 ABG pO2 59 L ABG HCO3 28 H ABG Total CO2 29 H ABG O2 Saturation 92.0 L ABG Base Excess 4.0 H Assessment and Plan Assessment and Plan: 08/27/2017 Impression Klebsiella pneumoniae pneumonia and bacteremia. Sensitive to all antibiotics except for ampicillin. Received 3 days of meropenem and Levaquin started 2016.. Repeat blood culture 1 on 08/24/2017 is negative Left-sided hydropneumothorax-patient does not want thoracentesis due to the pain of previous thoracentesis. Stage IV small cell lung cancer, chemotherapy recently in late July with plans to repeat September 02 Chronic hypoxic respiratory failure-stable on 4 L Type 2 diabetes mellitus-metformin on hold, blood sugars fair control on current sliding scale insulin Hypertension well controlled Coronary artery disease with history of stent 6 or 7 years ago-on aspirin and Plavix Gout-doing well on allopurinol Depression-continue Zoloft, has Valium when necessary Chest pain-likely related to lung metastasis Hemoptysis-worsened after starting heparin subcutaneous Anemia-hemoglobin dropped from 11.6-9.6 Plan Continue Percocet, currently working well. IV morphine is available for breakthrough pain. Continue Levaquin Lovenox discontinued 08/26/2017 because of worsening hemoptysis. Patient is on SCDs for DVT prophylaxis. Discussed today with Dr. Armendariz Recheck CBC and renal panel tomorrow. (The patient had mentioned to staff earlier yesterday that he wanted to consider going on hospice. When I talked with him he stated he would like to get his pain under control and would like to proceed with his next round of chemotherapy and see how he does. If not doing well, he wants to consider hospice at that time.) Hospital Course Summary Disclaimer: The visit summary below is not to be considered part of the above Progress Note. Hospital Course: 08/25/2017 1. Klebsiella bacteremia and pna -Meropenem IV -lactic acid normal. Procalcitonin mildly elevated -leukocytosis with bandemia -afebrile -CXR shows: Left-sided hydropneumothorax is again seen with decrease in the gas component, now approximately 10%. Continued moderate fluid component with an air-fluid level present. Partial collapse of the left lung versus. Recommend correlation with patient's surgical and procedural history. Right lung remains stable and grossly clear. No midline shift. Mediastinal contours are grossly stable. Impression: Decreasing gas component within the left hydropneumothorax. -Dr. Armendariz consulted 2. Klebsiella pneumonia -Meropenem -resp therapy 3. Diabetes -sliding scale insulin -Accu checks -carb consistent diet -hold metformin 4. Hypertension -currently normal but a little low last night (87/40 at [facility]) -hold JP inhibitor for the time being -follow volume status closely. 5. Hyperlipidemia -Lipitor 40 mg 6. Coronary artery disease -history of stent 6 or 7 years ago -continue aspirin and Plavix -No c/o chest pain 7. Gout -continue allopurinol 8. Depression -continue Zoloft -Valium PRN 9. Small cell lung cancer -currently undergoing chemotherapy most recently approximately August 08, plan to repeat Sep 02. DVT and G.I. prophylaxis with sub Q heparin and PPI 08/26/17 19:44 08/26/2017 Impression Klebsiella pneumoniae pneumonia and bacteremia. Sensitive to all antibiotics except for ampicillin. On day 3 of meropenem. Repeat blood culture 1 on 2016 is negative Left-sided hydropneumothorax-patient does not want thoracentesis due to the pain of previous thoracentesis. Stage IV small cell lung cancer, chemotherapy recently and late July with plans to repeat September 02 Chronic hypoxic respiratory failure-stable on 4 L Type 2 diabetes mellitus-metformin on hold, blood sugars fair control on current sliding scale insulin Hypertension well controlled Coronary artery disease with history of stent 6 or 7 years ago-on aspirin and Plavix Gout-doing well on allopurinol Depression-continue Zoloft, has Valium when necessary Chest pain-likely related to lung metastasis Hemoptysis-worsened after starting heparin subcutaneous Anemia-hemoglobin dropped from 11.6-9.6 Plan Start Percocet as needed for pain. IV morphine is available for breakthrough pain. Discontinue meropenem and start Levaquin 750 mg IV daily. Add MiraLAX for constipation DC subcutaneous heparin secondary to worsening hemoptysis The patient had mentioned to staff earlier today that he wanted to consider going on hospice. When I talked with him he stated he would like to get his pain under control and would like to proceed with his next round of chemotherapy and see how he does. If not doing well, he wants to consider hospice at that time. Recheck CBC and renal panel tomorrow. Discussed with Dr. Brasher Pulmonology note reviewed. Consults appreciated.
[2017-08-28] MEDS: BUDESONIDE INH.SOLN 0.5mg/2ml NEB AEROSOL SCH ×2 (06:52→19:41)
[2017-08-28] MEDS: ALBUTEROL/IPRATROPIUM 2.5mg-0.5mg/3ml NEB AEROSOL SCH ×4 (06:52→19:41)
[2017-08-28] MEDS: MULTI-VITAMIN + MINERAL TABLET PO SCH (08:29)
[2017-08-28] MEDS: SERTRALINE 25 MG TABLET PO SCH (08:29)
[2017-08-28] MEDS: Oxycodone/Acetaminophen 5/325 1 TAB PO PRN ×2 (08:29→19:53)
[2017-08-28] MEDS: GUAIFENESIN LA 600 MG TABLET PO SCH ×2 (08:29→20:41)
[2017-08-28] MEDS: PANTOPRAZOLE 40 MG TABLET PO SCH (08:30)
[2017-08-28] MEDS: CLOPIDOGREL 75 MG TABLET PO SCH (08:30)
[2017-08-28] MEDS: CYANOCOBALAMIN (B-12) 500mcg TABLET PO SCH (08:30)
--- NOTE | 2017-08-28 09:31 | Pulmonology Progress Note ---
Subjective Interval history: Pt up in the chair, states he still has cough, sputum (sometimes bloody, otherwise mainly yellowish brown). Feels he is doing a little better and less SOB noted. Exam Vital signs: Temperature 97.8 F 08/28/17 07:46 Pulse Rate 88 08/28/17 07:46 Respiratory Rate 19 08/28/17 07:46 Blood Pressure 112/66 08/28/17 07:46 Pulse Oximetry 93 08/28/17 07:46 - Constitutional no acute distress, well nourished - Routine HEENT Exam Head: Present: normocephalic, atraumatic Eye: Present: EOMI, PERRL - Routine Neck Exam Present: supple, full ROM - Routine Respiratory Exam Present: decreased breath sounds Comments: decreased breath sounds on L - Routine Cardiovascular Exam Present: RRR, no murmur - Routine Abdominal Exam Present: soft, normoactive bowel sounds - Routine Extremities Exam Present: no edema, full ROM - Routine Back/Spine/Pelvis Exam Back/Spine: Present: full ROM - Routine Skin Exam Present: intact, dry - Routine Neurological Exam Present: alert, oriented X3, CN II-XII intact - Routine Psychiatric Exam Present: normal affect, normal thought process Progress Note-A&P - Time Spent With Patient Total time spent is greater than 50% in coordination of care (as documented) at patient's floor/unit and/or counseling patient: less than 15 minutes (1) Chronic respiratory failure with hypoxia Status: Acute Current Visit: Yes (2) Bacteremia due to Klebsiella pneumoniae Status: Acute Current Visit: Yes (3) Small cell lung cancer Status: Acute Current Visit: Yes (4) Malignant pleural effusion Status: Acute Current Visit: Yes - Assessment and Plan Pt currently on O2 at 4L per [facility], [facility] and is home O2. Currently on levaquin for pna, improving WBC and afebrile. Last CXR stable hydroptx and no need for thoracentesis. Is supposed to start 2 cycle of chemo next week per Onc. Will continue to follow sputum and Hgb as he states he notices some blood throughout the day, Hgb 9.6 yest>9.5 today. Continue to monitor.
--- NOTE | 2017-08-28 14:36 | Progress Note ---
<Windy Bryant V - Last Filed: 08/28/17 14:32> Subjective: Juan C is seen today following his shower. He is alert and pleasant. Reports that overall he is feeling good. He feels that his breathing is at his baseline. He states he was able to complete his entire shower on room air without feeling significantly short of breath. At that time saturations were approximately 85%. He is chronically on 4 liters by nasal cannula. He denies having any pain, reports his appetite is good last bowel movement reported to be on 08/25. Objective Vital signs: Temperature 97.8 F 08/28/17 07:46 Pulse Rate 86 08/28/17 08:00 Respiratory Rate 24 08/28/17 11:08 Blood Pressure 112/66 08/28/17 07:46 Pulse Oximetry 97 08/28/17 11:08 Height/Weight/BMI: Height 1.71 m Weight 82.8 kg Body Mass Index 28.8 - Constitutional Present: no acute distress, well nourished, well developed - Routine HEENT Exam Eye: Present: EOMI ENT: Present: mucous membranes moist, dentition normal - Routine Respiratory Exam Present: diminished air movement (bilateral bases). Absent: wheezes - Routine Cardiovascular Exam Present: RRR, S1, S2. Absent: murmur - Routine Abdominal Exam Present: soft, normoactive bowel sounds, non distended. Absent: tenderness - Routine Extremities Exam Present: full ROM - Routine Skin Exam Present: intact, dry, warm - Routine Neurological Exam Present: alert, oriented X3, CN II-XII intact, moving all extremities - Routine Lymphatic Exam Lymphatic: Absent: adenopathy - Routine Psychiatric Exam Present: normal affect, cooperative Results - Labs CBC & Chem 7: 08/27/17 03:54 08/27/17 03:54 Microbiology Results: Microbiology 08/26/17 20:57 Sputum, Expectorated Gram Stain - Final 08/26/17 20:57 Sputum, Expectorated Sputum Culture - Preliminary Early growth 08/24/17 20:43 Port/Picc Blood Culture - Preliminary No Growth After 3 Days - ABG Interpretation ABG results: 08/24/17 19:47 ABG pH 7.476 H ABG pCO2 38 ABG pO2 59 L ABG HCO3 28 H ABG Total CO2 29 H ABG O2 Saturation 92.0 L ABG Base Excess 4.0 H Assessment and Plan Assessment and Plan: 08/27/2017 Impression Klebsiella pneumoniae pneumonia and bacteremia. Sensitive to all antibiotics except for ampicillin. Received 3 days of meropenem and Levaquin started 2016.. Repeat blood culture 1 on 08/24/2017 is negative Left-sided hydropneumothorax-patient does not want thoracentesis due to the pain of previous thoracentesis. Stage IV small cell lung cancer, chemotherapy recently in late July with plans to repeat September 02 Chronic hypoxic respiratory failure-stable on 4 L Type 2 diabetes mellitus-metformin on hold, blood sugars fair control on current sliding scale insulin Hypertension well controlled Coronary artery disease with history of stent 6 or 7 years ago-on aspirin and Plavix Gout-doing well on allopurinol Depression-continue Zoloft, has Valium when necessary Chest pain-likely related to lung metastasis Hemoptysis-worsened after starting heparin subcutaneous Anemia-hemoglobin dropped from 11.6-9.6 Plan Will change Levaquin over to PO starting tomorrow. Continue on 4 liters of oxygen which is baseline would like him to be up and ambulate QID encourage bowel motivation- Changed Miralax to scheduled. Lovenox was discontinued given hemoptysis. Continue on SCDs Continue Percocet for pain control. Will discontinue telemetry Morning labs reviewed, WBC count normalized to 8.5, hemoglobin stable at 9.5 Hopeful for discharge in the near future Hospital Course Summary Disclaimer: The visit summary below is not to be considered part of the above Progress Note. Hospital Course: 08/25/2017 1. Klebsiella bacteremia and pna -Meropenem IV -lactic acid normal. Procalcitonin mildly elevated -leukocytosis with bandemia -afebrile -CXR shows: Left-sided hydropneumothorax is again seen with decrease in the gas component, now approximately 10%. Continued moderate fluid component with an air-fluid level present. Partial collapse of the left lung versus. Recommend correlation with patient's surgical and procedural history. Right lung remains stable and grossly clear. No midline shift. Mediastinal contours are grossly stable. Impression: Decreasing gas component within the left hydropneumothorax. -Dr. Armendariz consulted 2. Klebsiella pneumonia -Meropenem -resp therapy 3. Diabetes -sliding scale insulin -Accu checks -carb consistent diet -hold metformin 4. Hypertension -currently normal but a little low last night (87/40 at ) -hold JP inhibitor for the time being -follow volume status closely. 5. Hyperlipidemia -Lipitor 40 mg 6. Coronary artery disease -history of stent 6 or 7 years ago -continue aspirin and Plavix -No c/o chest pain 7. Gout -continue allopurinol 8. Depression -continue Zoloft -Valium PRN 9. Small cell lung cancer -currently undergoing chemotherapy most recently approximately August 08, plan to repeat Sep 02. DVT and G.I. prophylaxis with sub Q heparin and PPI 08/26/17- Plan Start Percocet as needed for pain. IV morphine is available for breakthrough pain. Discontinue meropenem and start Levaquin 750 mg IV daily. Add MiraLAX for constipation DC subcutaneous heparin secondary to worsening hemoptysis The patient had mentioned to staff earlier today that he wanted to consider going on hospice. When I talked with him he stated he would like to get his pain under control and would like to proceed with his next round of chemotherapy and see how he does. If not doing well, he wants to consider hospice at that time. Recheck CBC and renal panel tomorrow. Discussed with Dr. Brasher Pulmonology note reviewed. Consults appreciated. 08/28/17 Plan Will change Levaquin over to PO starting tomorrow. Continue on 4 liters of oxygen which is baseline. Encourage ambulation and bowel motivation Hopeful for discharge tomorrow if doing well. <Graham Wagner - Last Filed: 08/28/17 16:23> Objective Vital signs: Temperature 98.4 F 08/28/17 15:00 Pulse Rate 144 H 08/28/17 15:00 Respiratory Rate 18 08/28/17 15:44 Blood Pressure 123/71 08/28/17 15:00 Pulse Oximetry 94 08/28/17 15:00 Height/Weight/BMI: Height 1.71 m Weight 82.8 kg Body Mass Index 28.8 Results - Labs CBC & Chem 7: 08/27/17 03:54 08/27/17 03:54 Microbiology Results: Microbiology 08/26/17 20:57 Sputum, Expectorated Gram Stain - Final 08/26/17 20:57 Sputum, Expectorated Sputum Culture - Preliminary Early growth 08/24/17 20:43 Port/Picc Blood Culture - Preliminary No Growth After 3 Days - ABG Interpretation ABG results: 08/24/17 19:47 ABG pH 7.476 H ABG pCO2 38 ABG pO2 59 L ABG HCO3 28 H ABG Total CO2 29 H ABG O2 Saturation 92.0 L ABG Base Excess 4.0 H Assessment and Plan Assessment and Plan: Impression Klebsiella pneumoniae pneumonia and bacteremia. Sensitive to all antibiotics except for ampicillin. Received 3 days of meropenem and Levaquin started 08/26/2017. Repeat blood culture 1 on 08/24/2017 is negative Left-sided hydropneumothorax-patient does not want thoracentesis due to the pain of previous thoracentesis. Stage IV small cell lung cancer, chemotherapy recently in late July with plans to repeat September 02 Chronic hypoxic respiratory failure-stable on 4 L Type 2 diabetes mellitus-metformin on hold, blood sugars fair control on current sliding scale insulin Hypertension well controlled Coronary artery disease with history of stent 6 or 7 years ago-on aspirin and Plavix Gout-doing well on allopurinol Depression-continue Zoloft, has Valium when necessary Chest pain-likely related to lung metastasis Hemoptysis-worsened after starting heparin subcutaneous Anemia-hemoglobin dropped from 11.6-9.6 Have independently interviewed and examined pt. Chart reviewed. Case discussed with CM and my [employer]. Care plan developed with my supervision; agree with above. Doing well today-feels pain well controlled with Percocet. Tolerating Percocet well-not feeling confused or nauseated. Stools slow. Breathing feels well; still some cough/congestion. Pain to chest with cough. Eating well. No mouth pain or pain with swallowing. Appetite much better than prior to admission. Strength and stability improving. No feeling fevers or chills. Lungs: Left basilar blunting. On distress on O2. CV: regular AB: soft nt/nd BS decreased. EXT: trace edema bilaterally. MSE: awake alert appropriate. Plan: Change to oral levofloxacin. Start Mirlax to decrease constipation from narcotic pain medications-discussed about use MOM and Dulcolax suppositories. Encourage ambulation. Hope for discharge in near future as clinically improving. Hospital Course Summary Disclaimer: The visit summary below is not to be considered part of the above Progress Note.
[2017-08-28] MEDS: SALINE FLUSH 10ml SYRINGE IV PRN (18:17)
[2017-08-28] MEDS: INSULIN ASPART 100unit/ml INJECTION SQ PRN ×2 (18:17→22:01)
[2017-08-28] MEDS: POLYETHYL GLYCOL 3350 17gm PACKET PO SCH (18:17)
[2017-08-28] MEDS: LEVOFLOXACIN PB 750 MG/150 ML BAG IV SCH (19:53)
[2017-08-28] MEDS: ALLOPURINOL 300 MG TABLET PO SCH (20:41)
[2017-08-28] MEDS: ATORVASTATIN 40 MG TABLET PO SCH (20:41)
[2017-08-28] MEDS: SIMVASTATIN 40 MG TABLET PO SCH (20:41)
[2017-08-29] MEDS: Oxycodone/Acetaminophen 5/325 1 TAB PO PRN (04:52)
[2017-08-29] MEDS: ALBUTEROL/IPRATROPIUM 2.5mg-0.5mg/3ml NEB AEROSOL SCH (07:51)
[2017-08-29] MEDS: BUDESONIDE INH.SOLN 0.5mg/2ml NEB AEROSOL SCH (07:51)
[2017-08-29 09:08] VITALS: TEMP 96.5
--- NOTE | 2017-08-29 09:51 | Discharge Instructions ---
Discharge Plan - Med Rec/Dispo Referrals/Follow Up: Kali Pennington MD [Physician] - CEE ARAIZA PA [Family Provider] - (Please schedule follow for 1 week ) Prescriptions: New Levofloxacin [Levaquin] 750 mg PO DAILY #11 tab Oxycodone/Acetaminophen 5/325 [Percocet 5/325] 1 - 2 tab PO Q4H PRN #30 tab PRN Reason: Pain Continue raNITIdine HCl [Ranitidine HCl] 150 mg PO BID #0 Enalapril Maleate 10 mg PO DAILY #0 Multivitamin [Multi-Day Vitamins] 1 tab PO DAILY #0 Pyridoxine HCl (Vitamin B-6) 1 tab PO DAILY #0 Cyanocobalamin (Vitamin B-12) [Vitamin B-12] 1 tab PO DAILY #0 Sertraline [Zoloft] 25 mg PO DAILY Furosemide [Lasix] 40 mg PO DAILY #0 Saw [facility] [place] Xtr/Zinc Picolin [Saw [place] Ext 160 mg Cap] 4 cap PO DAILY #0 Potassium Chloride [Klor-Con 10] 10 meq PO DAILY #0 tab Pantoprazole Sodium 40 mg PO DAILY #0 Allopurinol 300 mg PO HS #0 Metformin HCl 500 mg PO BIDWM #0 Simvastatin 80 mg PO HS #0 Clopidogrel Bisulfate [Clopidogrel] 75 mg PO DAILY #0 Diclofenac 1 applic TOP PRN #0 Acetaminophen [Acetaminophen Extra Strength] 2 tab PO DAILY PRN #0 PRN Reason: PAIN Discharge Instructions/Outpatient Orders: Provider Discharge Instructions Location: Determined By Patient - Disposition 01 Discharged Home, Self-Care
--- NOTE | 2017-08-29 09:58 | Discharge Summary ---
<Windy Bryant V - Last Filed: 08/29/17 10:01> Discharge Information Date of admission: 08/26/17 19:38 Anticipated date of discharge: 08/29/17 Attending Physician: Graham Wagner MD Primary care physician: CEE ARAIZA Consults: 08/24/17-Consulting Provider: Magdy Armendariz 08/24/17 -Physician Consult Provider: Kali Pennington - Discharge Diagnosis (1) Bacteremia due to Klebsiella pneumoniae Status: Acute Discharge Diagnosis: Left-sided hydropneumothorax Klebsiella pneumonia and bacteremia Stage IV small cell lung cancer Chronic hypoxic respiratory failure Diabetes HTN Coronary artery disease chest pain depression hemoptysis anemia - Procedures Procedures: None - Laboratory Labs: 08/29/17 04:42 08/29/17 04:42 - Microbiology Microbiology 08/26/17 20:57 Sputum, Expectorated Gram Stain - Final 08/26/17 20:57 Sputum, Expectorated Sputum Culture - Preliminary Normal Respiratory Arline including Yeast Present 08/24/17 20:43 Port/Picc Blood Culture - Preliminary No Growth After 4 Days - Radiology Radiology: 08/24/17- Chest Xray- Impression: Decreasing gas component within the left hydropneumothorax. 08/26/17- Chest Xray- Impression: Unchanged left hydropneumothorax and heterogeneous left pulmonary airspace consolidation. - Pathology None History of Present Illness HPI: This is a very pleasant 72-year-old male with known small cell lung cancer having undergone his 1st chemotherapy approximately August 08 for 3 days. This was done at [facility]. The patient states that his breathing issues all started on the last day of May. 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 He was admitted in [place] for 8 days on antibiotics for pneumonia. 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 He initially felt better. About a month ago he had recurrent shortness of breath and was in [place]. He was sent to [facility] in [employer] [place] and was again admitted for pneumonia on antibiotics. He was there for another 8 days. This past Saturday morning he woke up with fevers and chills again. His fever was up to 102. He has been having intermittent yellow thick sputum production ever since May. He has been having chest tightness that 's been ongoing since the [place] admission as well. Of note he does have a history of a stent by Dr. Edwards 6 or 7 years ago. He denies having UT at that time. He has had intermittent fevers and chills. He denies nausea, vomiting , diarrhea, constipation, hematechezia, melena. He does get lightheaded with position changes like going from sitting to standing. Today he noticed some slight dysuria. Objective Vital signs: Temperature 96.5 F L 08/29/17 07:00 Pulse Rate 66 08/29/17 07:00 Respiratory Rate 25 H 08/29/17 07:43 Blood Pressure 114/63 08/29/17 09:05 Pulse Oximetry 92 08/29/17 07:43 Height/Weight/BMI: Height 1.71 m Weight 85 kg Body Mass Index 28.8 - Constitutional Present: no acute distress, well nourished, well developed - Routine HEENT Exam Eye: Present: EOMI ENT: Present: mucous membranes moist, dentition normal - Routine Respiratory Exam Present: diminished air movement (bases). Absent: wheezes - Routine Cardiovascular Exam Present: RRR, S1, S2. Absent: murmur - Routine Abdominal Exam Present: soft, normoactive bowel sounds, non distended. Absent: tenderness - Routine Extremities Exam Present: full ROM, normal capillary refill - Routine Back/Spine/Pelvis Exam Back/Spine: Present: full ROM - Routine Skin Exam Present: intact, dry, warm - Routine Neurological Exam Present: alert, oriented X3, CN II-XII intact - Routine Lymphatic Exam Lymphatic: Absent: adenopathy - Routine Psychiatric Exam Present: normal affect, cooperative Hospital Course This is a general summary of the patient's hospital course. For more details refer to the complete medical record. Hospital course: 08/25/2017 1. Klebsiella bacteremia and pna -Meropenem IV -lactic acid normal. Procalcitonin mildly elevated -leukocytosis with bandemia -afebrile -CXR shows: Left-sided hydropneumothorax is again seen with decrease in the gas component, now approximately 10%. Continued moderate fluid component with an air-fluid level present. Partial collapse of the left lung versus. Recommend correlation with patient's surgical and procedural history. Right lung remains stable and grossly clear. No midline shift. Mediastinal contours are grossly stable. Impression: Decreasing gas component within the left hydropneumothorax. -Dr. Armendariz consulted 2. Klebsiella pneumonia -Meropenem -resp therapy 3. Diabetes -sliding scale insulin -Accu checks -carb consistent diet -hold metformin 4. Hypertension -currently normal but a little low last night (87/40 at [facility]) -hold JP inhibitor for the time being -follow volume status closely. 5. Hyperlipidemia -Lipitor 40 mg 6. Coronary artery disease -history of stent 6 or 7 years ago -continue aspirin and Plavix -No c/o chest pain 7. Gout -continue allopurinol 8. Depression -continue Zoloft -Valium PRN 9. Small cell lung cancer -currently undergoing chemotherapy most recently approximately August 08, plan to repeat Sep 02. DVT and G.I. prophylaxis with sub Q heparin and PPI 08/26/17- Plan Start Percocet as needed for pain. IV morphine is available for breakthrough pain. Discontinue meropenem and start Levaquin 750 mg IV daily. Add MiraLAX for constipation DC subcutaneous heparin secondary to worsening hemoptysis The patient had mentioned to staff earlier today that he wanted to consider going on hospice. When I talked with him he stated he would like to get his pain under control and would like to proceed with his next round of chemotherapy and see how he does. If not doing well, he wants to consider hospice at that time. Recheck CBC and renal panel tomorrow. Discussed with Dr. Brasher Pulmonology note reviewed. Consults appreciated. 08/28/17 Plan Will change Levaquin over to PO starting tomorrow. Continue on 4 liters of oxygen which is baseline. Encourage ambulation and bowel motivation Hopeful for discharge tomorrow if doing well. 08/29/17- Discharge Juan C is seen and examined today. He is up in the chair, alert and pleasant. He is at him baseline home oxygen of 4 liters. He also has breathing has even improve more today. He is been up and ambulating in the reed without difficulty. Appetite has been good as he is eating 100% of meals. He feels ready to be discharged home. Discussed discharge plan as he will need to continue continue on antibiotic coverage for an 11 additional days for total course of 14 days. He is discharged on Levaquin 750 milligrams daily. He is encouraged to follow-up with his primary care provider in [place]. I came to be evaluated within 1 week. Also instructed to follow up with oncologist, Dr. Pennington as planned. Patient is medically stable to be discharge home today with family. Time spent with patient: discharge greater than 30 minutes Discharge Plan - Med Rec/Dispo Referrals/Follow Up: Kali Pennington MD [Physician] - CEE ARAIZA PA [Family Provider] - (Please schedule follow for 1 week ) Prescriptions: New Levofloxacin [Levaquin] 750 mg PO DAILY #11 tab Oxycodone/Acetaminophen 5/325 [Percocet 5/325] 1 - 2 tab PO Q4H PRN #30 tab PRN Reason: Pain Continue raNITIdine HCl [Ranitidine HCl] 150 mg PO BID #0 Enalapril Maleate 10 mg PO DAILY #0 Multivitamin [Multi-Day Vitamins] 1 tab PO DAILY #0 Pyridoxine HCl (Vitamin B-6) 1 tab PO DAILY #0 Cyanocobalamin (Vitamin B-12) [Vitamin B-12] 1 tab PO DAILY #0 Sertraline [Zoloft] 25 mg PO DAILY Furosemide [Lasix] 40 mg PO DAILY #0 Saw [place] Xtr/Zinc Picolin [Saw [place] Ext 160 mg Cap] 4 cap PO DAILY #0 Potassium Chloride [Klor-Con 10] 10 meq PO DAILY #0 tab Pantoprazole Sodium 40 mg PO DAILY #0 Allopurinol 300 mg PO HS #0 Metformin HCl 500 mg PO BIDWM #0 Simvastatin 80 mg PO HS #0 Clopidogrel Bisulfate [Clopidogrel] 75 mg PO DAILY #0 Diclofenac 1 applic TOP PRN #0 Acetaminophen [Acetaminophen Extra Strength] 2 tab PO DAILY PRN #0 PRN Reason: PAIN Discharge Instructions/Outpatient Orders: Provider Discharge Instructions Location: Determined By Patient - Disposition 01 Discharged Home, Self-Care <Graham Wagner - Last Filed: 08/29/17 11:55> Discharge Information Date of admission: 08/26/17 19:38 Attending Physician: Graham Wagner MD Primary care physician: CEE ARAIZA Consults: 08/24/17 19:45 Physician Consult [CONS] Routine Consulting Provider: Magdy Armendariz Reason For Exam: persistent Pna Ordering Provider has Notified Press Feeder: No Comment: Pt with small cell Lung ca and recurrent pna 08/24/17 20:19 Physician Consult [CONS] Routine Consulting Provider: Kali Pennington Reason For Exam: small cell lung CA Ordering Provider has Notified Press Feeder: No 08/25/17 06:17 Dietary Consult [CONS] Routine Comment: Reason For Exam: 08/27/17 18:53 Dietary Consult [CONS] Routine Comment: Reason For Exam: - Discharge Diagnosis (1) Bacteremia due to Klebsiella pneumoniae Status: Acute - Laboratory Labs: 08/29/17 04:42 08/29/17 04:42 - Microbiology Microbiology 08/26/17 20:57 Sputum, Expectorated Gram Stain - Final 08/26/17 20:57 Sputum, Expectorated Sputum Culture - Preliminary Normal Respiratory Arline including Yeast Present 08/24/17 20:43 Port/Picc Blood Culture - Preliminary No Growth After 4 Days Objective Vital signs: Temperature 96.5 F L 08/29/17 07:00 Pulse Rate 104 H 08/29/17 10:14 Respiratory Rate 24 08/29/17 10:14 Blood Pressure 152/79 H 08/29/17 10:14 Pulse Oximetry 93 08/29/17 10:14 Height/Weight/BMI: Height 1.71 m Weight 85 kg Body Mass Index 28.8 Hospital Course This is a general summary of the patient's hospital course. For more details refer to the complete medical record. Discharge Plan - Med Rec/Dispo - Attestation Attestation Narrative: 08/29/17 11:52 I have independently interviewed and examined patient prior to discharge. Chart reviewed. Case discussed with CM and my REFUSE LABORER. Care plan developed with my supervision; agree with above. Doing well today, other than tripped on his shoe while walking and fell. No f/ c. Breathing stable. Eating well. Feels ready to go home. Lungs: Left basilar blunting. No distress on O2. CV: regular MSE: awake, alert, appropriate Plan: Medically stable for discharge to home. Continue levofloxacin in outpatient setting. Encourage walker for gait stability. See orders for details.
[2017-08-29] MEDS: CLOPIDOGREL 75 MG TABLET PO SCH (10:42)
[2017-08-29] MEDS: GUAIFENESIN LA 600 MG TABLET PO SCH (10:42)
[2017-08-29] MEDS: SERTRALINE 25 MG TABLET PO SCH (10:42)
[2017-08-29] MEDS: PANTOPRAZOLE 40 MG TABLET PO SCH (10:42)
[2017-08-29] MEDS: POLYETHYL GLYCOL 3350 17gm PACKET PO SCH (10:42)
[2017-08-29] MEDS: CYANOCOBALAMIN (B-12) 500mcg TABLET PO SCH (10:42)
[2017-08-29] MEDS: MULTI-VITAMIN + MINERAL TABLET PO SCH (10:43)
[2017-08-29 11:42] VITALS: BP 152/79; PULSE 104; RESP 24
[2017-08-29 15:17] VITALS: O2SAT 94
== END 2017-08-29 13:00 | disposition home or self-care (01) | DRG 178 ==
LOC: MED → SUATTDRO 18:27
PROVIDERS: ADMIT Internal Medicine Cardiovascular Disease; ATTEND Hospitalist